=== PATIENT | female | born 1975 | race Two or more races ===

== ENCOUNTER 2018-07-11 10:14 | Emergency (ER) | payer OTHER ==
[~2018-07-11] VITALS: Ht 167.6 cm; Wt 98.0 kg
[~2018-07-11 10:14] MED LIST: CIPRO500 MG PO; PERCOCET 10-3251 TAB PO; PRENATAL1 TAB; TAMSULOSIN HCL0.4 MG PO; TRAMADOL HCL50 MG PO; ZANTAC300 MG PO; ZOFRAN4 MG PO
[2018-07-11] MEDS ORDERED: CLINDAMYCIN HC300 MG PO (14:59)
[2018-07-11] MEDS ORDERED: INTESTINEX680 M1 PO (14:59)
== END 2018-07-11 21:57 | disposition home or self-care (01) ==
LOC: ER 10:14
DX: J31.2 Chronic pharyngitis (principal)